=== PATIENT | female | born 1965 | race Caucasian/White ===

== ENCOUNTER 2023-11-03 18:40 | Inpatient (IN) | payer OTHER, SELFPAY ==
[2023-11-03 14:24] VITALS: BP 178/100
--- NOTE | 2023-11-03 14:41 | ED.GENMED ---
History of Present Illness
<Erica Carrasco PA-C - Last Filed: 11/03/23 18:54>
General
Chief Complaint: Abdominal Symptoms
Source: patient
Exam Limitations: none
Time Seen by Provider: 11/03/23 14:29
Nursing documentation reviewed up to this point in time: agreed with
History of Present Illness
History of Present Illness:
Patient is a 58-year-old female presenting to the emergency department for evaluation of upper abdominal pain associated with nausea, vomiting, diarrhea. Patient states pain initially started on after eating dinner at a restaurant. She
describes a severe pain in her epigastric region that has been relatively constant since night, although worse with movement. Patient denies any radiation of pain around to the back. Patient reports nausea, vomiting, and diarrhea over the
past 2 days. No known fevers or chills. No urinary symptoms. No chest pain or shortness of breath. She has been taking Maalox without much improvement.
Of note�patient does report frequent belching over the past few weeks and heartburn which is not typical for patient.
Patient has no history of abdominal surgeries.
Past History
<Erica Carrasco PA-C - Last Filed: 11/03/23 18:54>
Past History
ED Past Medical History: Other (Iron deficiency anemia)
ED Past Surgical History: Gynecological
Social History
Tobacco: Non-smoker
Alcohol: Occasional
Living: with family
Employment: Employed
Family History
Family History: Negative Diabetes, Hypertension, Early CAD, Asthma or Cancer
Review of Systems
<Erica Carrasco PA-C - Last Filed: 11/03/23 18:54>
Review of Systems
Allergies reviewed?: Yes
All Other Systems: ROS reviewed and negative except as documented in HPI and ROS
Phy Exam
<Erica Carrasco PA-C - Last Filed: 11/03/23 18:54>
Physical Exam
Physical Exam:
Vitals: Hypertensive, otherwise vital signs stable. Afebrile
General: Patient is well appearing, no acute distress. Nontoxic appearing
Skin: Warm and dry, no rashes or lesions
Head: Normocephalic, atraumatic
Eyes: Sclera nonicteric. EOMs intact. No nystagmus.
Throat: Protecting airway
Neck: Normal ROM, no cervical spine tenderness, no meningismus
Cardiac: Regular rate and rhythm, no murmurs.
Pulm: Normal respiratory effort, no wheezes, rales, rhonchi heard on exam.
Abdomen: Abdomen soft. Moderate tenderness in epigastric region with voluntary guarding. No rebound tenderness. No CVA tender
Extremities: No evidence of cyanosis or edema. Great distal pulses
Neuro: Grossly intact
Psychiatric: Normal affect.
Course
<Erica Carrasco PA-C - Last Filed: 11/03/23 18:54>
Orders/Labs/Results
Orders:
Orders
11/03/23 14:55
Basic Metabolic Panel Urgent
Complete Blood Count/With Diff Urgent
Lipase Urgent
11/03/23 15:17
0.9% Sodium Chloride 1000 ml [Nss] 1,000 ml IV BOLUS
11/03/23 15:18
Electrocardiogram (*1) Urgent
Reason for Study: Abdominal Pain
EKG- Treatment ONCE
11/03/23 15:22
US Abdomen Complete/Upper Urgent
Comment:
Reason For Exam: epigastric abdominal pain +N +V
11/03/23 15:23
Afobh-Oybi-Hbewfdi Urgent
Potassium Urgent
11/03/23 15:30
Urinalysis Reflex To Culture Urgent
Date Specimen was Collected: 11/03/23
Time Specimen was Collected: 15:27
Urine Microscopic Reflex Cult Urgent
11/03/23 16:42
CefTRIAXone [Rocephin] 1,000 mg IV NOW STA
11/03/23 16:43
Sterile Water [Sterile Water For Injection] 10 ml .ROUTE .STK-MED ONE
11/03/23 16:49
Ketorolac [Toradol] 15 mg IV NOW STA
11/03/23 17:18
Admit/Transfer Patient As Directed
Co-Sign Provider:
Level of Care: Inpatient admission
Assign to:: Medical/Surgical
Physician / Group: herrera
Diagnosis: choledocholelithiasis
Reason for Hospitalization: choledocholelithasis
Expected length of stay greater than two midnights?: Yes
ELOS- Estimated Length of Stay in days: 3
I certify the patient meets the requirements for IP care: Yes
11/03/23 17:19
PRN Pain Medication Management As Directed
May give lesser potent ordered pain med per pt: Yes
preference::
Protocol:: Medication orders for pain may be administered in a
manner that supports deferring to patient preference
when the pt is:
- Requesting an ordered lesser potent pain medication.
Least to most potent pain medications are defined
as: acetaminophen < NSAID < tramadol < opioids
(morphine, oxycodone, hydromorphone).
- Requesting a lesser dose of the same medication IF
ORDERED.
- Requesting a less intrusive route of administration
if both routes are prescribed by the provider (PO <
IV).
11/03/23 17:20
Code Status As Directed
Resuscitation Status: Full Code
Abnormal Lab Results
11/03/23 11/03/23 11/03/23
14:55 15:23 15:30
RBC 3.90 L 10^6/uL
(4.20-5.40)
Hct 36.8 L %
(37.0-47.0)
MCH 33.8 H pg
(27.0-31.0)
MPV 10.8 H fL
(7.4-10.4)
Monocytes % 10.0 H %
(1.7-9.3)
Glucose 115 H mg/dl
(70-99)
Total Bilirubin 1.7 H mg/dl
(0.2-1.3)
Direct Bilirubin 1.0 H mg/dl
(0.0-0.4)
AST 400 H U/L
(14-36)
ALT 787 H* U/L
(0-35)
Alkaline Phosphatase 167 H U/L
(38-126)
Urine Ketones Trace A
(Negative)
Urine Bilirubin 1+ A
(Negative)
Urine Urobilinogen 2+ A
(Neg - 1+)
Leukocyte Esterase Rfl Trace A
(Negative)
Urine Bacteria (Reflex) Few A
(Negative)
11/03/23 14:55
11/03/23 15:42
Vital Signs
Initial and Last Documented VS:
Initial Vital Signs
Temp Pulse Resp BP Pulse Ox
98.7 F 85 16 178/100 98
11/03/23 14:24 11/03/23 14:24 11/03/23 14:24 11/03/23 14:24 11/03/23 14:24
Last Documented Vital Signs
Temp Pulse Resp BP Pulse Ox
98.7 F 85 16 178/100 98
11/03/23 14:24 11/03/23 14:24 11/03/23 14:24 11/03/23 14:24 11/03/23 14:24
<Valencia Goldsmith, DO - Last Filed: 11/03/23 16:53>
Orders/Labs/Results
Orders:
Orders
11/03/23 14:55
Basic Metabolic Panel Urgent
Complete Blood Count/With Diff Urgent
Lipase Urgent
11/03/23 15:17
0.9% Sodium Chloride 1000 ml [Nss] 1,000 ml IV BOLUS
11/03/23 15:18
Electrocardiogram (*1) Urgent
Reason for Study: Abdominal Pain
EKG- Treatment ONCE
11/03/23 15:22
US Abdomen Complete/Upper Urgent
Comment:
Reason For Exam: epigastric abdominal pain +N +V
11/03/23 15:23
Yvhhj-Otuf-Heffqrq Urgent
Potassium Urgent
11/03/23 15:30
Urinalysis Reflex To Culture Urgent
Date Specimen was Collected: 11/03/23
Time Specimen was Collected: 15:27
Urine Microscopic Reflex Cult Urgent
11/03/23 16:42
CefTRIAXone [Rocephin] 1,000 mg IV NOW STA
11/03/23 16:43
Sterile Water [Sterile Water For Injection] 10 ml .ROUTE .STK-MED ONE
11/03/23 16:49
Ketorolac [Toradol] 15 mg IV NOW STA
11/03/23 17:18
Admit/Transfer Patient As Directed
Co-Sign Provider:
Level of Care: Inpatient admission
Assign to:: Medical/Surgical
Physician / Group: herrera
Diagnosis: choledocholelithiasis
Reason for Hospitalization: choledocholelithasis
Expected length of stay greater than two midnights?: Yes
ELOS- Estimated Length of Stay in days: 3
I certify the patient meets the requirements for IP care: Yes
11/03/23 17:19
PRN Pain Medication Management As Directed
May give lesser potent ordered pain med per pt: Yes
preference::
Protocol:: Medication orders for pain may be administered in a
manner that supports deferring to patient preference
when the pt is:
- Requesting an ordered lesser potent pain medication.
Least to most potent pain medications are defined
as: acetaminophen < NSAID < tramadol < opioids
(morphine, oxycodone, hydromorphone).
- Requesting a lesser dose of the same medication IF
ORDERED.
- Requesting a less intrusive route of administration
if both routes are prescribed by the provider (PO <
IV).
11/03/23 17:20
Code Status As Directed
Resuscitation Status: Full Code
Abnormal Lab Results
11/03/23 11/03/23 11/03/23
14:55 15:23 15:30
RBC 3.90 L 10^6/uL
(4.20-5.40)
Hct 36.8 L %
(37.0-47.0)
MCH 33.8 H pg
(27.0-31.0)
MPV 10.8 H fL
(7.4-10.4)
Monocytes % 10.0 H %
(1.7-9.3)
Glucose 115 H mg/dl
(70-99)
Total Bilirubin 1.7 H mg/dl
(0.2-1.3)
Direct Bilirubin 1.0 H mg/dl
(0.0-0.4)
AST 400 H U/L
(14-36)
ALT 787 H* U/L
(0-35)
Alkaline Phosphatase 167 H U/L
(38-126)
Urine Ketones Trace A
(Negative)
Urine Bilirubin 1+ A
(Negative)
Urine Urobilinogen 2+ A
(Neg - 1+)
Leukocyte Esterase Rfl Trace A
(Negative)
Urine Bacteria (Reflex) Few A
(Negative)
11/03/23 14:55
11/03/23 15:42
Vital Signs
Initial and Last Documented VS:
Initial Vital Signs
Temp Pulse Resp BP Pulse Ox
98.7 F 85 16 178/100 98
11/03/23 14:24 11/03/23 14:24 11/03/23 14:24 11/03/23 14:24 11/03/23 14:24
Last Documented Vital Signs
Temp Pulse Resp BP Pulse Ox
98.7 F 85 16 178/100 98
11/03/23 14:24 11/03/23 14:24 11/03/23 14:24 11/03/23 14:24 11/03/23 14:24
<Erica Carrasco PA-C - Last Filed: 11/03/23 18:54>
MDM/Problems Addressed
Differential Diagnosis Includes:
Not limited to: Biliary colic, cholecystitis, choledocholithiasis, cholangitis, pancreatitis, gastritis, ulcer
MDM/Problems Addressed:
58-year-old female presenting with upper abdominal pain associated with nausea, vomiting, diarrhea for the past 4 days. No fever or chills. Patient without any hematemesis, hematochezia/melena. No urinary symptoms. Patient initially
hypertensive, otherwise vital signs stable. She is afebrile. Physical exam as above. Patient is nontoxic-appearing, although mildly uncomfortable due to pain. Abdomen is soft with moderate tenderness in right upper quadrant/epigastric region
with voluntary guarding. No rebound tenderness. No tenderness at McBurney's point. Heart regular rate and rhythm. Lungs clear bilaterally. Patient is perfusing well. Given patient's history and location of pain on exam�will check basic labs,
lipase, abdominal ultrasound. Will check EKG. will give IV fluids. Patient declines any analgesia at this time. Will closely monitor and reassess
Chronic conditions affecting care:
N/A
Acute Exacerbation and/or Progression of Chronic Illness:
N/A
<Erica Carrasco PA-C - Last Filed: 11/03/23 18:54>
*Radiology
Radiology exam reviewed: preliminary read by ED provider and radiology read reviewed
*Pulse Oximetry
Patient hypoxic: no
*EKG
Interpreted by ED Provider?: Yes
EKG Intrepretation Date: 11/03/23
Interpretation: normal
Comparison EKG: no changes
Heart Rate: 75
Rate: normal
Rhythm: sinus
[place]: normal axis
Interval: normal interval
QRS Pattern: normal QRS
Ischemia: no ischemia
*Billboard Erector Interpretation
Rate: Billboard Erector- N/A
*Critical Care Note
Total Time (30-74mins, 75-104mins- exclusive of procedures): Not Applicable
<Erica Carrasco PA-C - Last Filed: 11/03/23 18:54>
Update Note
Update Note:
Update: Labs reviewed. CBC without any clinically significant abnormalities. No leukocytosis. CMP shows significant transaminitis with elevation of total bilirubin. Lipase is normal. Abdominal ultrasound shows evidence of choledocholithiasis
with a dilation of this CBD to 4.7 mm any 3 mm stone visualized in the distal common bile duct. Likely etiology of patient's pain. No evidence of accompanying acute cholecystitis. Will give dose of Rocephin and Toradol for pain. Discussed with GI
who will plan for ERCP tomorrow. Patient admitted and accepted to hospitalist service, n.p.o. at midnight�plan for ERCP with GI tomorrow. Patient hemodynamically stable and admitted in stable condition. Patient seen with attending physician.
ED Attending Note
<Erica Carrasco PA-C - Last Filed: 11/03/23 18:54>
-
Portions of this chart may have been created with voice recognition software.� Occasional wrong word or��sound alike� substitutions may have occurred due to the inherent limitations of voice recognition software.
<Valencia Goldsmith DO - Last Filed: 11/03/23 16:53>
ED Attending Note
Patient seen and examined by attending physician: Yes
I performed the substantive portion of visit, reviewed & personally made and approve the management plan that is documented in note by myself or SAMARIA.: Yes
I performed a history and physical exam of patient and discussed management with resident, I reviewed resident's note and agree with documented findings and plan of care.: Yes
ED Attending Note:
58-year-old female without significant past medical history presenting with upper abdominal pain with nausea and vomiting, onset 4 days ago. Pain has been persistent. Denies any surgical history in the past. Denies any fever. Vital signs
significant for hypertension, however patient uncomfortable on arrival.
On exam, focal tenderness to the right upper quadrant with rebound, no guarding. Patient had laboratory analysis and right upper quadrant ultrasound performed prior to my evaluation. Workup is concerning for transaminitis and elevated T. bili,
with ultrasound showing choledocholithiasis, suspected etiology of patient's symptoms, consistent with her symptoms. Patient is otherwise hemodynamically stable. Will start antibiotics with plan for admission with GI consultation and likely ERCP.
Patient agreeable to this plan.
Discharge Plan
Departure
Patient Disposition: Admit
Date of Disposition: 11/03/23
Time of Disposition: 16:52
Presentation/result/management discussed w/ accepting MD/DO: Hospitalist
Condition: Good
Covid-19: Not Applicable
Discharge Problem:
Choledocholithiasis
Interventions
Interventions:
*Risk Screen - Suicide Last Done: 11/03/23 14:44
*General Assessment Last Done: 11/03/23 14:44
*Neglect/Abuse Screening Last Done: 11/03/23 14:44
CJ-Agedab-Hyupsjgljn Assessment Last Done: 11/03/23 14:44
[2023-11-03 14:44] VITALS: BMI 20.3
[2023-11-03 15:03] LABS: % Basophils 0.8 % (0-2); % Eosinophils 1.9 % (0-6); % Immature Granulocytes 0.2 % (0-0.5); % Lymphocytes 30.6 % (20.5-51.1); % Neutrophils 56.5 % (42.2-75.2); Absolute Eosinophils 0.1 10^3/uL (0-0.7); Absolute Lymphocytes 1.6 10^3/uL (1.2-3.4); Absolute Monocytes 0.5 10^3/uL (0.1-0.6); Hematocrit 36.8 % (37.0-47.0); Hemoglobin 13.2 g/dL (12.0-16.0); Mean Corp Hgb Conc. 35.9 g/dL (33.0-37.0); Mean Corpuscular Hgb 33.8 pg (27.0-31.0); Mean Corpuscular Volume 94.4 fL (81.0-99.0); Mean Platelet Volume 10.8 fL (7.4-10.4); Nucleated Red Blood Cells % 0 %; Platelet Count 173 10^3/uL (130-400); Red Cell Dist. Width 11.7 % (11.5-14.5); White Blood Cell Count 5.3 10^3/uL (4.8-10.8)
[2023-11-03 15:19] LABS: Blood Urea Nitrogen 11 mg/dl (7-17); Calcium 9.2 mg/dl (8.4-10.2); Carbon Dioxide 24 mmol/L (22-30); Chloride 106 mmol/L (98-107); Estimated Creatinine Clearance 85 ml/min; Glucose 115 mg/dl (70-99); Lipase 84 U/L (23-300); Sodium 141 mmol/L (135-145); eGFR > 60.00
[2023-11-03] MEDS: NSS 1000 IV ×2 (15:27→20:15)
[2023-11-03 15:42] LABS: Urine Albumin Negative (Neg - Trace); Urine Bilirubin 1+ (Negative); Urine Character Clear (Clear); Urine Color Amber; Urine Glucose Negative (Negative); Urine Ketone Trace (Negative); Urine Leukocyte Trace (Negative); Urine Nitrite Negative (Negative); Urine Occult Blood Negative (Negative); Urine Specific Gravity 1.025 (<1.030); Urine Urobilinogen 2+ (Neg - 1+)
[2023-11-03 15:55] LABS: AST (SGOT) 400 U/L (14-36); Albumin 4.2 g/dl (3.5-5.0); Alkaline Phosphatase 167 U/L (38-126); Potassium 3.9 mmol/L (3.5-5.1); Total Bilirubin 1.7 mg/dl (0.2-1.3); Total Protein 6.5 g/dl (6.3-8.2)
[2023-11-03 16:10] LABS: ALT (SGPT) 787 U/L (0-35)
[2023-11-03] MEDS: ROCEPHIN 1000 MG IV (16:44)
[2023-11-03] MEDS: TORADOL 15 MG IV (16:56)
--- NOTE | 2023-11-03 17:00 | HPS.HSE ---
Family Physician
-
Family Physician: Santos Hathaway
Chief Complaint
-
epigastric pain associated with n/v/d
History of Present Illness
58-year-old female with PMH for GERD presented to us with epigastric pain associate with nausea vomiting diarrhea since night. Patient stated no more vomiting since Friday night . She is only eating crackers, GGT and toasted bread . She
has intermittent nonbloody watery diarrhea . Patient took antacid and Pepcid with no relief in her symptoms . Today her epigastric pain got worse which prompted her to come to the ER . Patient denied any fever, chills, runny nose, congestion,
cough .patient denied any headache, dizziness, syncopal episode .patient denied dysuria, hematuria.
CT with choledocholithiasis. received ceftriaxone in ER. admitting for further management.
Medical History
Past Medical History
Past Medical History: Reports Other
Additional Past Medical History:
GERD
Past Surgical History: Reports None
Social History
Tobacco: Non-smoker
Alcohol: Occasional
Drug: None
Family History
Family History: Not pertinent
Allergies / Home Medications
Allergies reflects when Allergies were last updated in [facility].
Home Medications with original date entered in [facility]
Allergy/Medication List:
Allergies
Allergy/AdvReac Type Severity Reaction Status Date / Time
codeine [Codeine] AdvReac nausea and Verified 11/03/23 14:25
vomiting
oxycodone [Oxycodone] AdvReac nausea and Verified 11/03/23 14:25
vomiting
Home Medications
cholecalciferol (vitamin D3) 50 mcg (2,000 unit) tablet (Vitamin D3) 50 mcg PO HS 11/03/23
estradiol-norethindrone acet 1 mg-0.5 mg tablet 1 tab PO HS 11/03/23
omeprazole magnesium 20 mg tablet,delayed release (Prilosec OTC) 20 mg PO DAILYPRN PRN stomach issues 11/03/23
therapeutic multivitamin 1 tab PO HS 11/03/23
Review of Systems
-
Constitutional: Reports No Symptoms
EENT: Reports No Symptoms
Respiratory: Reports No Symptoms
Cardiac: Reports No Symptoms
Abdomen/GI: Reports Abdominal Pain, Nausea, Vomiting and Diarrhea
: Reports No Symptoms
Musculoskeletal: Reports No Symptoms
Skin: Reports No Symptoms
Neurological: Reports No Symptoms
Endocrine: Reports No Symptoms
Hematologic/Lymphatic: Reports No Symptoms
Psych: Reports No Symptoms
Physical Exam
Vital Signs
Vital Signs
Temp Pulse Resp BP Pulse Ox
98.7 F 85 16 178/100 98
11/03/23 14:24 11/03/23 14:24 11/03/23 14:24 11/03/23 14:24 11/03/23 14:24
Physical Exam
General: Well Developed, Well Nourished and No Apparent Distress
HEENT: NormoCephalic, Moist mucous membranes and Atraumatic
Respiratory: Clear
Cardiac: S1/S2 and Regular Rhythm; No Murmur or Rub
GI: Soft, Non Tender, Non Distended and Normal Bowel Sounds; No Organomegaly
Rectal: Deferred by Provider
Musculoskeletal: No Clubbing, No Cyanosis and No Edema
Skin: No Rash
Neuro: AO x 3 and Nonfocal/grossly intact
Psych: Calm
Laboratory Results
-
11/03/23 14:55
11/03/23 15:42
Laboratory Results
Total Bilirubin Cancelled 11/03/23 15:42
AST Cancelled 11/03/23 15:42
ALT Cancelled 11/03/23 15:42
Alkaline Phosphatase Cancelled 11/03/23 15:42
Lipase 84 U/L (23-300) 11/03/23 14:55
Data Reviewed
-
CT Scan: Report Reviewed by me
Lab Data: Labs Reviewed by me
Impression/Plan
-
#epigastric pain associated with N/V/D likely from Choledocholithiasis
-total bili 1.7, direct bili 1.0,AST 400,ALT 787, ALK phos 167
-abdomen US with choledocholithiasis with a 3 mm calculus in the distal common bile duct.There is, however, no associated biliary dilatation and there is no thickening of the gallbladder wall or pericholecystic edema.
-keep patient NPO
-fluids continued for hydration
-initiated on Zosyn
-possible ERCP tomorrow
-GI following
#DVT prophylaxis
-scd
#CODE status
-full code
[2023-11-03 17:10] VITALS: BP 145/82
[2023-11-03 17:14] LABS: Urine Squamous Cell 26-30 /LPF (Few)
[2023-11-03 17:15] LABS: Urine Bacteria Few (Negative); Urine Red Blood Cell 0-2 /HPF (0-2)
--- NOTE | 2023-11-03 18:23 | W.PN.UPDATE ---
Addendum entered and electronically signed by Mabel Saravia MD 11/03/23 18:32:
PRN hydralazine for Hypertensive urgency secondary to pain.
Original Note:
Update Note
Progress Note Update
This is an addendum to the H&P written by Yamileth Nye on 11/03/2023. Patient seen and examined independently with WOUND CARE SPECIALIST.
58-year-old female history of GERD, here for epigastric pain and transaminitis secondary to choledocholithiasis. Abdominal ultrasound shows choledocholithiasis with 3 mm calculus in the distal common bile duct. IV fluids, Zosyn, n.p.o. for ERCP
tomorrow by GI.
[2023-11-03 19:25] VITALS: BP 148/85; BMI 21.1
[2023-11-03] MEDS: ZOSYN 50 IV (20:15)
[2023-11-03] MEDS: ZOFRAN 4 MG IV (20:30)
--- NOTE | 2023-11-03 20:30 | PTCARENOTE ---
58-year-old female with PMH for GERD presented to us with epigastric pain associate with nausea vomiting diarrhea since night. Patient stated no more vomiting since Friday night. Pain got worse admitted for ERCP tomorrow. [place]rived [place] [address] at 19:40 with adult daughter and a friend. Pt AOx3. bed in a low position. call light in reach.
[2023-11-03] MEDS: DILAUDID 1 MG IV (20:32)
[2023-11-03 22:48] VITALS: BP 146/87
[2023-11-03] MEDS: COMPAZINE 5 MG IV (23:12)
[2023-11-04] VITALS (12 sets, daily range): BP systolic 104–169; BP diastolic 57–93
[2023-11-04] MEDS: ZOSYN 50 IV (01:19)
[2023-11-04 07:33] LABS: Hematocrit 35.9 % (37.0-47.0); Hemoglobin 12.5 g/dL (12.0-16.0); Mean Corp Hgb Conc. 34.8 g/dL (33.0-37.0); Mean Corpuscular Hgb 33.2 pg (27.0-31.0); Mean Corpuscular Volume 95.2 fL (81.0-99.0); Mean Platelet Volume 11.3 fL (7.4-10.4); Platelet Count 156 10^3/uL (130-400); Red Blood Cell Count 3.77 10^6/uL (4.20-5.40); Red Cell Dist. Width 11.7 % (11.5-14.5); White Blood Cell Count 4.5 10^3/uL (4.8-10.8)
[2023-11-04] MEDS: NSS (PRESERVATIVE FREE) 10 ML IV (07:52)
[2023-11-04] MEDS: PROTONIX IV 40 MG IV (07:52)
[2023-11-04 07:56] LABS: ALT (SGPT) 579 U/L (0-35); AST (SGOT) 186 U/L (14-36); Albumin 3.6 g/dl (3.5-5.0); Alkaline Phosphatase 151 U/L (38-126); Blood Urea Nitrogen 8 mg/dl (7-17); Calcium 8.9 mg/dl (8.4-10.2); Carbon Dioxide 24 mmol/L (22-30); Chloride 109 mmol/L (98-107); Estimated Creatinine Clearance 87 ml/min; Glucose 84 mg/dl (70-99); Sodium 142 mmol/L (135-145); Total Bilirubin 1.3 mg/dl (0.2-1.3); Total Protein 5.8 g/dl (6.3-8.2); eGFR > 60.00
--- NOTE | 2023-11-04 08:18 | CON.GI ---
Consultation
-
Date/Time Consultation Requested: 11/03/23 17:20
Date/Time Consultation Performed: 11/04/23 8:15
Requesting Provider: Dr. Mabel Saravia
Performing Provider: Dr. Raffy Skinner
Reason for Consultation: Choledocholithiasis
Medical History
Chief Complaint / HPI
Chief Complaint: Epigastric abdominal pain
History of Present Illness:
Ms Wong is a 58 year old female with past medical history of GERD who presented to the ED with epigastric pain along with nausea/vomiting. Found to have elevated LFTs and US revealing choledocholithiasis. Gastroenterology has been consulted for
further evaluation and management.
Patient states she was in her USOH until evening when she developed sharp, upper epigastric abdominal pain along with nausea and NBNB emesis that occurred after dinner. Denies any sick contacts or spoiled food ingestion. Denies any prior
similar symptoms in the past. The pain continued to wax and wane and then improved on Friday and initially over the weekend. She initially attributed her symptoms to her reflux and tried taking an antacid and pepcid without any relief. Otherwise, no
fevers, chills, night sweats or other constitutional symptoms. However, yesterday she developed acute worsening epigastric pain prompting her come to the ED for further evaluation. Otherwise, she is not on any antiplatelets or anticoagulants. No
NSAIDs. She denies ever having a prior EGD. Last colonoscopy was about 2-3 years ago and reportedly normal.
In the ED, patient was afebrile and HD-stable with HR 70-90s. Labs notable for BUN 11 and [employer] 0.6. LFTs with AST 400, ALT 787, ALP 167, and T Bili 1.7. Lipase 84. CBC without leukocytosis with WBC 5.3, Hgb 13.2, and plts 173. Abd US 11/03/23 revealed
choledocholithiasis with a 3 mm calculus within the distal CBD without associated biliary ductal dilatation or other evidence of cholecystitis. She was given IVF and started on IV Zosyn and admitted to medicine for further management.
Past Medical History
Past Medical History: GERD
Social History
Tobacco: Non-Smoker
Alcohol: Occasional
Drug: None
Allergies / Home Medications
Allergy/AdvReac Type Severity Reaction Status Date / Time
codeine [Codeine] AdvReac nausea and Verified 11/03/23 14:25
vomiting
oxycodone [Oxycodone] AdvReac nausea and Verified 11/03/23 14:25
vomiting
�Medication �Instructions �Recorded
cholecalciferol (vitamin D3) 50 50 mcg PO HS Supplement 11/03/23
mcg (2,000 unit) tablet (Vitamin
D3)
estradiol-norethindrone acet 1 1 tab PO HS Hormonal Agent 11/03/23
mg-0.5 mg tablet
omeprazole magnesium 20 mg 20 mg PO DAILYPRN PRN stomach 11/03/23
tablet,delayed release (Prilosec issues
OTC)
therapeutic multivitamin 1 tab PO HS Supplement 11/03/23
Review of Systems
-
All other systems: A 12 pt ROS was Negative except as stated above in HPI
Vital Signs
Temp Pulse Resp BP Pulse Ox
97.8 F 66 18 104/57 99
11/04/23 07:51 11/04/23 07:51 11/04/23 07:51 11/04/23 07:51 11/04/23 07:51
Physical Exam
Exam
General: Well Developed, Well Nourished, No Apparent Distress and Comfortable
HEENT: Normocephalic, Anicteric and Moist Mucous Membranes
Respiratory: Clear and Non Labored Respirations
Cardiac: S1/S2 and Regular Rhythm
GI: Soft, Tender (Mild epigastric tenderness) and Other (No rebound or involuntary gaurding)
Skin: Warm
Neuro: AO x 3 and Nonfocal/Grossly Intact
Psych: Calm
Results
WBC 4.5 10^3/uL (4.8-10.8) L 11/04/23 06:54
Hgb 12.5 g/dL (12.0-16.0) 11/04/23 06:54
Hct 35.9 % (37.0-47.0) L 11/04/23 06:54
MCV 95.2 fL (81.0-99.0) 11/04/23 06:54
Plt Count 156 10^3/uL (130-400) 11/04/23 06:54
Absolute Neuts (auto) 3.0 10^3/uL (1.4-6.5) 11/03/23 14:55
Sodium 142 mmol/L (135-145) 11/04/23 06:54
Potassium 4.0 mmol/L (3.5-5.1) 11/04/23 06:54
Chloride 109 mmol/L (98-107) H 11/04/23 06:54
Carbon Dioxide 24 mmol/L (22-30) 11/04/23 06:54
BUN 8 mg/dl (7-17) 11/04/23 06:54
Creatinine 0.6 mg/dL (0.6-1.0) 11/04/23 06:54
Calcium 8.9 mg/dl (8.4-10.2) 11/04/23 06:54
Total Bilirubin 1.3 mg/dl (0.2-1.3) 11/04/23 06:54
AST 186 U/L (14-36) H 11/04/23 06:54
ALT 579 U/L (0-35) H* 11/04/23 06:54
Alkaline Phosphatase 151 U/L (38-126) H 11/04/23 06:54
Lipase 84 U/L (23-300) 11/03/23 14:55
Diagnostic Image Results:
Abd US 11/03/23 revealed choledocholithiasis with a 3 mm calculus within the distal CBD without associated biliary ductal dilatation or other evidence of cholecystitis.
Prior GI Procedures:
EGD: No prior EGD
Colonoscopy: Last colonoscopy 2-3 years ago normal (reported by patient)
Assessment / Plan
-
Ms Wong is a 58 year old female with past medical history of GERD who presented to the ED with epigastric pain along with nausea/vomiting. Found to have elevated LFTs and US revealing choledocholithiasis. Gastroenterology has been consulted for
further evaluation and management.
#Biliary Colic #Choledocholithiasis
#Acute Hepatocellular Predominant Liver Injury
#Nausea/Vomiting
#Hx of GERD
Impression: Patient presenting with biliary colic along with nausea/vomiting found to have elevated LFTs with AST 400, ALT 787, ALP 167, and T Bili 1.7 along with lipase 84. Abd US 10/28 revealing small 3 mm calculus within distal CBD without biliary
ductal dilatation consistent with choledocholithiasis. Otherwise, no fevers, chills, leukocytosis or other signs of SIRS. Thus, no concern for biliary sepsis / cholangitis at this time and favor monitoring off IV antibiotics. Would benefit from ERCP
with stone extraction along with eventual cholecystectomy.
Recommendations:
- Keep NPO
- Continue IVF to maintain euvolemia
- Trend serial LFTs q daily while inpatient- improving
- Check acute hepatitis panel and total HBV serologies for completion
- Stop IV Zosyn as without evidence of cholangitis
- Plan for ERCP today, 11/04/2023, for stone extraction
- Would benefit from both pre-procedural rectal Indomethacin along with bryant-procedural IV LR for prevention of PEP
- Discussed risks (including PEP, bleeding, infection, etc) and benefits at length at bedside. Patient wishes to proceed with ERCP
- Recommend surgical consult after ERCP for eventual cholecystectomy, defer timing to general surgery
- Rest of care per primary team
Discussed with primary internal medicine team this AM.
Thank you for allowing me to participate in the care of this patient. Please do not hesitate to call for any further questions. Inpatient GI team will continue to follow.
Data Reviewed
-
Radiology: Report Reviewed by me
Ultrasound: Image Personally Visualized and interpreted and Report Reviewed by me
-
-
Thank you for consultation and allowing me to participate in the patient's care. Please call the [facility] GI physician during the after hours with any questions or concerns.
[2023-11-04] MEDS: ZOSYN IV (08:42)
[2023-11-04] MEDS: NSS 1000 IV (09:40)
[2023-11-04] MEDS: TYLENOL 650 MG PO ×2 (09:43→22:06)
--- NOTE | 2023-11-04 10:19 | W.PN.HOSP.TC ---
Today's Communication/Plan
-
IVF
DC abx
ERCP
Assessment / Plan
Assessment / Plan
General: Well Developed, Well Nourished and No Apparent Distress
HEENT: NormoCephalic, Moist mucous membranes and Atraumatic
Respiratory: Clear
Cardiac: S1/S2 and Regular Rhythm; No Murmur or Rub
GI: Soft, TTP epigastric region, Non Distended and Normal Bowel Sounds; No Organomegaly
Rectal: Deferred by Provider
Musculoskeletal: No Clubbing, No Cyanosis and No Edema
Skin: No Rash
Neuro: AO x 3 and Nonfocal/grossly intact
Psych: Calm
#Epigastric pain associated with N/V/D likely from Choledocholithiasis
-Mild improvement in transaminitis.
-abdomen US with choledocholithiasis with a 3 mm calculus in the distal common bile duct.There is, however, no associated biliary dilatation and there is no thickening of the gallbladder wall or pericholecystic edema.
-keep patient NPO
-fluids continued for hydration
-Discussed with GI. DC antibiotics. Not concern for cholangitis
-Plan for ERCP later today
-Serologies pending.
-May require laparoscopic cholecystectomy (Inpatient vs. OP). Consult surgery post ERCP
-GI following
#DVT prophylaxis
-scd
#CODE status
-full code
Discussed with multiple family member at bedside
Anticipated Discharge: > 48 hours
Subjective/Interval History
-
Date of Service: November 04, 2023
remains with abd pain
Objective Data
-
Labs:
Laboratory Results
11/04/23
06:54
WBC 4.5 L
Hgb 12.5
Hct 35.9 L
Plt Count 156
Sodium 142
Potassium 4.0
Chloride 109 H
Carbon Dioxide 24
BUN 8
Creatinine 0.6
Glucose 84
Calcium 8.9
Total Bilirubin 1.3
AST 186 H
ALT 579 H*
Alkaline Phosphatase 151 H
Vital Signs:
Vital Signs
Temp Pulse Resp BP Pulse Ox
97.8 F 66 18 104/57 99
11/04/23 07:51 11/04/23 07:51 11/04/23 07:51 11/04/23 07:51 11/04/23 07:51
I&O
11/03/23 11/04/23 11/05/23
06:59 06:59 06:59
Intake Total 1060 / 1060
Balance 1060 / 1060
Data Reviewed
-
Total Time Spent with Patient (in minutes): 56
[2023-11-04 11:09] LABS: Hepatitis B Surface Antigen Negative (Negative)
[2023-11-04 11:12] LABS: Hepatitis A IgM Antibody Negative (Negative); Hepatitis B Core Ab, IgM Negative (Negative)
[2023-11-04 11:27] LABS: Hepatitis B Core Ab, Total Negative (Negative); Hepatitis C Antibody Negative (Negative)
[2023-11-04 11:28] LABS: Hepatitis A Antibody, Total Negative (Negative)
--- NOTE | 2023-11-04 11:37 | CM ---
Reviewed the chart notes and spoke with the patient and family at the bedside. Patient anticipates having an ERCP today. The patient resides with her spouse, daughter, and son in a two story home with one step to enter. The patient reports no
DME/VN/SNF. The patient confirmed her pharmacy of choice is the [facility]. CM continues to be available to patient/family and is monitoring medical plan for needs at discharge.
Plan: Discharge to home when medically stable. No needs anticipated.
[2023-11-04 13:02] LABS: Hepatitis B Surface Antibody Indeterminate
[2023-11-04] MEDS: APRESOLINE 10 MG IV (16:48)
--- NOTE | 2023-11-04 18:12 | PTCARENOTE ---
1720: Patient arrived back to 2S post ERCP. Assessment from AM remains unchanged. Patient on RA with SpO2 greater than 92%. IVF running per order. Call pittman within reach and bed in lowest position. at bedside.
[2023-11-05] VITALS (15 sets, daily range): BP systolic 102–156; BP diastolic 58–105
[2023-11-05] MEDS: NSS 1000 IV ×2 (01:38→20:18)
[2023-11-05] MEDS: TYLENOL 650 MG PO (05:47)
[2023-11-05 06:36] LABS: Hematocrit 34.6 % (37.0-47.0); Hemoglobin 12.4 g/dL (12.0-16.0); Mean Corp Hgb Conc. 35.8 g/dL (33.0-37.0); Mean Corpuscular Hgb 34.1 pg (27.0-31.0); Mean Corpuscular Volume 95.1 fL (81.0-99.0); Mean Platelet Volume 11.1 fL (7.4-10.4); Platelet Count 160 10^3/uL (130-400); Red Blood Cell Count 3.64 10^6/uL (4.20-5.40); Red Cell Dist. Width 11.4 % (11.5-14.5); White Blood Cell Count 6.1 10^3/uL (4.8-10.8)
[2023-11-05 07:13] LABS: ALT (SGPT) 412 U/L (0-35); AST (SGOT) 92 U/L (14-36); Albumin 3.5 g/dl (3.5-5.0); Alkaline Phosphatase 138 U/L (38-126); Blood Urea Nitrogen 9 mg/dl (7-17); Calcium 8.8 mg/dl (8.4-10.2); Carbon Dioxide 24 mmol/L (22-30); Chloride 108 mmol/L (98-107); Estimated Creatinine Clearance 87 ml/min; Glucose 96 mg/dl (70-99); Sodium 140 mmol/L (135-145); Total Protein 5.7 g/dl (6.3-8.2); eGFR > 60.00
[2023-11-05] MEDS: NSS (PRESERVATIVE FREE) 10 ML IV (08:17)
[2023-11-05] MEDS: PROTONIX IV 40 MG IV (08:18)
--- NOTE | 2023-11-05 09:09 | W.PN.GI.CBS2 ---
Today's Communication / Plan
-
S/p ERCP with stone removal and placement of PD stent, recommend general surgery consult for lap cathleen (inpatient versus outpatient). Rest of care as outlined below.
Assessment / Plan
-
Ms Wong is a 58 year old female with past medical history of GERD who presented to the ED with epigastric pain along with nausea/vomiting. Found to have elevated LFTs and US revealing choledocholithiasis. Gastroenterology has been consulted for
further evaluation and management.
#Biliary Colic #Choledocholithiasis s/p ERCP with stone extraction
#Acute Hepatocellular Predominant Liver Injury
#Nausea/Vomiting
#Hx of GERD
Impression: Patient presenting with biliary colic along with nausea/vomiting found to have elevated LFTs with AST 400, ALT 787, ALP 167, and T Bili 1.7 along with lipase 84. Abd US 10/28 revealing small 3 mm calculus within distal CBD without biliary
ductal dilatation consistent with choledocholithiasis. Otherwise, no fevers, chills, leukocytosis or other signs of SIRS. Thus, no concern for biliary sepsis / cholangitis at this time and favor monitoring off IV antibiotics. Would benefit from ERCP
with stone extraction along with eventual cholecystectomy.
S/p ERCP 11/03: Choledocholithiasis was found, managed with biliary sphincterotomy and balloon extraction of one stone, s/p pancreatic sphincterotomy with placement of plastic stent in PD
Recommendations:
- Keep NPO pending surgical evaluation
- Trend serial LFTs q daily while inpatient- improving
- Hep serologies (-) for acute viral hepatitis, HBsAb indeterminate and likely needs repeat vaccination as outpatient
- Will arrange KUB as an outpatient in two weeks (provided patient lab slip this AM) to ensure migration of PD stent
- Recommend surgical consult for lap cathleen, defer timing to surgery
- Will arrange close follow-up after discharge in 6-8 weeks with me in the office. Have messaged clinical staff to make appointment
- Rest of care per primary team
Discussed with internal medicine team this AM.
GI team will sign-off. Please do not hesitate to call for any further questions.
Subjective
Subjective
Date of Service: November 05, 2023
- S/p ERCP 11/03: Choledocholithiasis was found, managed with biliary sphincterotomy and balloon extraction of one stone, s/p pancreatic sphincterotomy with placement of plastic stent in PD
- Otherwise, no acute events overnight
Feeling well, resting comfortably in bed. Tolerating CLD without difficulty. No nausea or vomiting or other epigastric pain. No fevers, chills or other constitutional symptoms.
Objective
Data Reviewed
Laboratory Data:
Laboratory Results
11/05/23 05:40
11/05/23 05:40
Laboratory Results
Total Bilirubin 1.0 mg/dl (0.2-1.3) 11/05/23 05:40
AST 92 U/L (14-36) H 11/05/23 05:40
ALT 412 U/L (0-35) H 11/05/23 05:40
Alkaline Phosphatase 138 U/L (38-126) H 11/05/23 05:40
Lipase 84 U/L (23-300) 11/03/23 14:55
Vital Signs and I&O:
Vital Signs
Temp Pulse Resp BP Pulse Ox
98.9 F 80 16 109/68 100
11/05/23 07:20 11/05/23 07:20 11/05/23 07:20 11/05/23 07:20 11/05/23 07:20
I&O
11/04/23 11/05/23 11/06/23
06:59 06:59 06:59
Intake Total 1060 / 1060 3460 / 3460
Balance 1060 / 1060 3460 / 3460
Physical Exam
Physical Exam
HEENT: Anicteric and Moist mucous membranes
Cardiology: Normal Sinus Rhythm
Pulmonary: Clear
GI: Soft, Non Distended and Flat
Extremities: No Edema
Neuro: Non Focal
--- NOTE | 2023-11-05 09:17 | W.PN.GI.CBS2 ---
Addendum entered and electronically signed by Raffy Skinner, DO 11/05/23 09:28:
Error
Addendum entered and electronically signed by Raffy Skinner, DO 11/05/23 09:27:
ADDENDUM: See previous progress note from this AM for complete note (including subjective/objective) as inadvertently signed two notes.
Original Note:
Today's Communication / Plan
-
S/p ERCP with stone removal and placement of PD stent, recommend general surgery consult for lap cathleen (inpatient versus outpatient). Rest of care as outlined below.
Assessment / Plan
-
Ms Wong is a 58 year old female with past medical history of GERD who presented to the ED with epigastric pain along with nausea/vomiting. Found to have elevated LFTs and US revealing choledocholithiasis. Gastroenterology has been consulted for
further evaluation and management.
#Biliary Colic #Choledocholithiasis
#Acute Hepatocellular Predominant Liver Injury
#Nausea/Vomiting
#Hx of GERD
Impression: Patient presenting with biliary colic along with nausea/vomiting found to have elevated LFTs with AST 400, ALT 787, ALP 167, and T Bili 1.7 along with lipase 84. Abd US 10/28 revealing small 3 mm calculus within distal CBD without biliary
ductal dilatation consistent with choledocholithiasis. Otherwise, no fevers, chills, leukocytosis or other signs of SIRS. Thus, no concern for biliary sepsis / cholangitis at this time and favor monitoring off IV antibiotics. Would benefit from ERCP
with stone extraction along with eventual cholecystectomy.
S/p ERCP 11/03: Choledocholithiasis was found, managed with biliary sphincterotomy and balloon extraction of one stone, s/p pancreatic sphincterotomy with placement of plastic stent in PD
Recommendations:
- Keep NPO pending surgical evaluation
- Trend serial LFTs q daily while inpatient- improving
- Hep serologies (-) for acute viral hepatitis, HBsAb indeterminate and likely needs repeat vaccination as outpatient
- Will arrange KUB as an outpatient in two weeks (provided patient lab slip this AM) to ensure migration of PD stent
- Recommend surgical consult for lap cathleen, defer timing to surgery
- Will arrange close follow-up after discharge in 6-8 weeks with me in the office. Have messaged clinical staff to make appointment
- Rest of care per primary team
Discussed with internal medicine team this AM.
GI team will sign-off. Please do not hesitate to call for any further questions.
Subjective
Subjective
Date of Service: November 05, 2023
Objective
Data Reviewed
Laboratory Data:
Laboratory Results
11/05/23 05:40
11/05/23 05:40
Laboratory Results
Total Bilirubin 1.0 mg/dl (0.2-1.3) 11/05/23 05:40
AST 92 U/L (14-36) H 11/05/23 05:40
ALT 412 U/L (0-35) H 11/05/23 05:40
Alkaline Phosphatase 138 U/L (38-126) H 11/05/23 05:40
Lipase 84 U/L (23-300) 11/03/23 14:55
Vital Signs and I&O:
Vital Signs
Temp Pulse Resp BP Pulse Ox
98.9 F 80 16 109/68 100
11/05/23 07:20 11/05/23 07:20 11/05/23 07:20 11/05/23 07:20 11/05/23 07:20
I&O
11/04/23 11/05/23 11/06/23
06:59 06:59 06:59
Intake Total 1060 / 1060 3460 / 3460
Balance 1060 / 1060 3460 / 3460
--- NOTE | 2023-11-05 10:11 | CON.GS ---
Consultation
-
Requesting Provider: Yamileth
Performing Provider: Tatiana
Reason for Consultation: Choledocholithiasis
Medical History
-
Chief Complaint: Abd pain
History of Present Illness:
58F with acute onset epigastric pain a/w n/v/d that began about a week ago. Pain was intially mproved with bowel rest but returned and was more severe promtpting ED visit. US identified choledocholithiasis and she underwent successful ERCP yesterday
with stone extraction. GS was consulted to discuss the role of CCY in this setting.
Past Medical History
Past Medical History: GERD
Past Surgical History: Reviewed & Noncontributory
Social History
Tobacco: Non-Smoker
Alcohol: Occasional
Drug: None
Family History
Family History: Reviewed & Noncontributory
Allergies / Home Medications
Allergy/AdvReac Type Severity Reaction Status Date / Time
codeine [Codeine] AdvReac nausea and Verified 11/03/23 14:25
vomiting
oxycodone [Oxycodone] AdvReac nausea and Verified 11/03/23 14:25
vomiting
�Medication �Instructions �Recorded �Confirmed �Type
cholecalciferol (vitamin D3) 50 50 mcg PO HS Supplement 11/03/23 11/03/23 History
mcg (2,000 unit) tablet (Vitamin
D3)
estradiol-norethindrone acet 1 1 tab PO HS Hormonal Agent 11/03/23 11/03/23 History
mg-0.5 mg tablet
omeprazole magnesium 20 mg 20 mg PO DAILYPRN PRN stomach 11/03/23 11/03/23 History
tablet,delayed release (Prilosec issues
OTC)
therapeutic multivitamin 1 tab PO HS Supplement 11/03/23 11/03/23 History
Review of Systems
-
A 10 point review of systems was completed, and was negative except as per HPI.
Physical Exam
Vital Signs
Temp Pulse Resp BP Pulse Ox
98.9 F 80 16 109/68 100
11/05/23 07:20 11/05/23 07:20 11/05/23 07:20 11/05/23 07:20 11/05/23 07:20
11/04/23 11/05/23 11/06/23
06:59 06:59 06:59
Actual Weight 55.61 kg
Body Mass Index (BMI) 21.1
Lab Results
11/05/23 05:40
11/05/23 05:40
WBC 6.1 10^3/uL (4.8-10.8) 11/05/23 05:40
Hgb 12.4 g/dL (12.0-16.0) 11/05/23 05:40
Hct 34.6 % (37.0-47.0) L 11/05/23 05:40
Plt Count 160 10^3/uL (130-400) 11/05/23 05:40
Abs Immat Gran (auto) 0.0 10^3/uL (0-0.05) 11/03/23 14:55
Neutrophils % 56.5 % (42.2-75.2) 11/03/23 14:55
Physical Exam
General: Well Developed, Well Nourished and No Apparent Distress
HEENT: Normocephalic and Anicteric
GI: Soft, Non Tender and Non Distended
Skin: Warm and Dry
Neuro: AO x 3
Psych: Calm
Data Reviewed
-
Ultrasound: Image Personally Visualized and interpreted, Report Reviewed by me, Discussed with Patient and Discussed with Family
Labs: Labs Reviewed by me
Assessment / Plan
-
58F with choledocholithiasis PPD1 s/p ERCP
Doing well. We discussed the rationale for CCY in this setting, to prevent future episodes. She would like to proceed with surgery this admit.
Risks, benefits, complications and alternatives were discussed in detail including pain, bleeding, retained stone, injury to intra-abdominal structures including but not limited to bile ducts, bowel, stomach, conversion to open procedure, need for
further procedure, infection, and the pt verbalized understanding and agreed to proceed.
OCTOR for CCY
--- NOTE | 2023-11-05 10:31 | CM ---
Reviewed the chart notes. Per notes, con connolly during this stay. CM continues to be available to patient/family and is monitoring medical plan for needs at discharge.
Plan: Discharge to home when medically stable.
--- NOTE | 2023-11-05 11:37 | W.PN.HOSP.TC ---
Today's Communication/Plan
-
Continue with IV fluids
OR later today
Assessment / Plan
Assessment / Plan
General: Well Developed, Well Nourished and No Apparent Distress
HEENT: NormoCephalic, Moist mucous membranes and Atraumatic
Respiratory: Clear
Cardiac: S1/S2 and Regular Rhythm; No Murmur or Rub
GI: Soft, Non Distended and Normal Bowel Sounds; No Organomegaly
Rectal: Deferred by Provider
Musculoskeletal: No Clubbing, No Cyanosis and No Edema
Skin: No Rash
Neuro: AO x 3 and Nonfocal/grossly intact
Psych: Calm
#Epigastric pain associated with N/V/D likely from Choledocholithiasis
-Mild improvement in transaminitis.
-abdomen US with choledocholithiasis with a 3 mm calculus in the distal common bile duct.There is, however, no associated biliary dilatation and there is no thickening of the gallbladder wall or pericholecystic edema.
-keep patient NPO
-fluids continued for hydration
-Discussed with GI. DC antibiotics. Not concern for cholangitis
-s/p ERCP biliary sphincterotomy and balloon extraction status post pancreatic stent durotomy with placement of plastic stent.
-Serologies pending.
-General Surgery consulted for cholecystectomy. Plan for OR later today. Postop orders per surgery.
-GI following
#DVT prophylaxis
-scd
#CODE status
-full code
Discussed with discussed with spouse and daughter at bedside
Anticipated Discharge: Within 24 hours
Subjective/Interval History
-
Date of Service: November 05, 2023
Improvement in abd pain
Objective Data
-
Labs:
Laboratory Results
11/05/23
05:40
WBC 6.1
Hgb 12.4
Hct 34.6 L
Plt Count 160
Sodium 140
Potassium 4.0
Chloride 108 H
Carbon Dioxide 24
BUN 9
Creatinine 0.6
Glucose 96
Calcium 8.8
Total Bilirubin 1.0
AST 92 H
ALT 412 H
Alkaline Phosphatase 138 H
Vital Signs:
Vital Signs
Temp Pulse Resp BP Pulse Ox
98.9 F 80 16 109/68 100
11/05/23 07:20 11/05/23 07:20 11/05/23 07:20 11/05/23 07:20 11/05/23 07:20
I&O
11/04/23 11/05/23 11/06/23
06:59 06:59 06:59
Intake Total 1060 / 1060 3460 / 3460
Balance 1060 / 1060 3460 / 3460
--- NOTE | 2023-11-05 17:31 | OR.RPT ---
Operative Report
Operative Report
Primary Surgeon: Tatiana
Assisting: Kurt ABDULLAHI
Pre-op Diagnosis: Choledocholithiasis
Post-op Diagnosis: Same
Procedure Performed: Robot assisted laparoscopic cholecystectomy
Anesthesia Type: GETA
Specimen / Cultures: Gallbladder
Estimated Blood Loss: 10cc
Complications: None immediate
Operative Findings: Floppy gallbladder without adhesions
Date of Surgery:� 11/05/23
Indications: This 58F developed right upper quadrant pain. Work-up showed choledocholithiasis. She underwent successful ERCP. Laparoscopic cholecystectomy with robotic assist was elected.
Description of procedure: The patient was placed on the operating table in the supine position. General anesthesia was induced. A time-out was completed verifying correct patient, procedure, site, positioning, and special equipment prior to
beginning this procedure. An orogastric tube was placed. The abdomen was prepped and draped in the usual sterile fashion. A stab incision was made in left upper quadrant and the Veress needle was inserted. Proper position was confirmed by aspiration
and saline meniscus test. The abdomen was insufflated with carbon dioxide to a pressure of 12mmHg. The patient tolerated insufflation well.
A 8mm trocar was then inserted above the umbilicus. The laparoscope was inserted and the abdomen inspected. No injuries from initial trocar placement or Veress needle insertion were noted. Additional 8mm trocars were then inserted in the following
locations: two in the right lower quadrant and to the left of the umbilicus and just above. The abdomen was inspected and no abnormalities were found. The table was placed in the reverse Trendelenburg position with the right side up. The dome of the
gallbladder was grasped with an atraumatic grasper and retracted over the dome of the liver. The infundibulum was then grasped with an atraumatic grasper and retracted toward the right lower quadrant. This maneuver exposed Calot�s triangle. The
peritoneum overlying the gallbladder infundibulum was then incised and the cystic duct and cystic artery identified and circumferentially dissected so that a clear view of the liver was achieved through a window between the cystic duct an cystic
artery. At this time, the only two structures going into the gallbladder were the cystic artery and cystic duct.
The cystic duct was then doubly clipped and divided. The cystic artery was controlled with bipolar and divided. The gallbladder was then dissected from its peritoneal attachments by electrocautery. The gallbladder was removed using an endoscopic
retrieval bag placed through the umbilical port. The gallbladder was passed off the table as a specimen. The gallbladder fossa was thoroughly irrigated. There was no evidence of bleeding from the gallbladder fossa or cystic artery or leakage of the
bile from the cystic duct stump. The umbilical trocar site was closed at the fascial level with 2-0 PDS. Secondary trocars were removed under direct vision and noted to be hemostatic. The abdomen was allowed to collapse. The skin was closed with
subcuticular sutures of 4-0 monocryl and topical skin adhesive. The orogastric tube was removed.
The patient tolerated the procedure well and was taken to the postanesthesia care unit in stable condition.
The assistance of Kurt ABDULLAHI was required due to the complexity of the procedure. During the procedure he assisted with retraction, resection, and closure of the wound.
[2023-11-05] MEDS: TORADOL 15 MG IV (20:18)
[2023-11-05] MEDS: FLUSH (NSS) 2 FLUSH IV (20:19)
--- NOTE | 2023-11-06 01:39 | PTCARENOTE ---
Patient received from PACU via bed. Family at bedside. lap site with surgical glue in place. Patient tolerated a small amount of dinner. IVF as ordered. Ax1 to bathroom. See MAR for pain management.
[2023-11-06 03:00] VITALS: BP 117/66
[2023-11-06 05:47] LABS: Hematocrit 34.6 % (37.0-47.0); Hemoglobin 12.2 g/dL (12.0-16.0); Mean Corp Hgb Conc. 35.3 g/dL (33.0-37.0); Mean Corpuscular Hgb 33.9 pg (27.0-31.0); Mean Corpuscular Volume 96.1 fL (81.0-99.0); Mean Platelet Volume 11.4 fL (7.4-10.4); Platelet Count 166 10^3/uL (130-400); Red Cell Dist. Width 11.9 % (11.5-14.5); White Blood Cell Count 8.9 10^3/uL (4.8-10.8)
[2023-11-06] MEDS: TORADOL 15 MG IV (05:51)
[2023-11-06 06:18] LABS: ALT (SGPT) 354 U/L (0-35); AST (SGOT) 73 U/L (14-36); Albumin 3.7 g/dl (3.5-5.0); Alkaline Phosphatase 129 U/L (38-126); Blood Urea Nitrogen 7 mg/dl (7-17); Calcium 8.6 mg/dl (8.4-10.2); Carbon Dioxide 24 mmol/L (22-30); Chloride 109 mmol/L (98-107); Estimated Creatinine Clearance 87 ml/min; Glucose 95 mg/dl (70-99); Potassium 3.8 mmol/L (3.5-5.1); Sodium 144 mmol/L (135-145); Total Bilirubin 0.6 mg/dl (0.2-1.3); eGFR > 60.00
[2023-11-06 07:25] VITALS: BP 133/78
[2023-11-06] MEDS: NSS (PRESERVATIVE FREE) IV (08:00)
[2023-11-06] MEDS: PROTONIX IV IV (08:00)
--- NOTE | 2023-11-06 08:04 | W.PN.GS2 ---
Addendum entered and electronically signed by Rodri Wilks MD 11/06/23 08:21:
Patient seen and examined with compliance vice president. Agree with documented progress note.
Patient reports good pain control postoperatively. No nausea. Tolerating low-fat/regular diet.
AFVSS
NAD AAOx3
ABD: Soft, slightly distended, minimal tenderness at incision sites. Incisions with glue dressing and minimal localized ecchymosis
A/P: POD #1 s/p RAL cholecystectomy
Stable for discharge home
Follow-up with Dr. Simpson 2 to 3 weeks for postop
Surgical discharge instructions reviewed
Original Note:
Today's Communication / Plan
-
Patient cleared for discharge from surgery's end
Assessment / Plan
-
Assessment:
Patient is a 58 yo woman POD#1 following robot assisted laparoscopic cholecystectomy for choledocholithiasis. Patient underwent procedure well and had no complications during the procedure.
Plan:
AFVSS
Labs Stable
Choledocholithiasis
-Underwent successful laparoscopic cholecystectomy
-No antibiotics required post procedure
-Pain/anti-emetics PRN
-Able to tolerate regular diet
-Cleared for discharge as per surgery team
-No heavy lifting for 2-3 weeks
DVT prophylaxis: SCD
Subjective Data
-
Date of Service: November 06, 2023
Patient has been feeling well after surgery. She reports no nausea, vomiting, fevers or chills since the procedure. Patient was able to eat some food last night and has been tolerating food this morning as well.
Objective Data
-
Intake and Output
11/05/23 11/06/23 11/07/23
06:59 06:59 06:59
Intake Total 3460 / 3460 1320 / 1320
Output Total 1600 / 1600
Balance 3460 / 3460 -280 / -280
Intake:
Oral fluids 1440 / 1440 480 / 480
IV fluids (Total) 2019 840 / 840
LR 100 / 100
Output:
Urine, Voided 1600 / 1600
Other:
Number of approximated MODERATE 3
amounts of urine
How many times incontinent 3
MODERATE amount urine
Vital Signs
Temp Pulse Resp BP Pulse Ox
98.0 F 72 16 133/78 99
11/06/23 07:25 11/06/23 07:25 11/06/23 07:25 11/06/23 07:25 11/06/23 07:25
Lab Results
11/06/23 05:11
11/06/23 05:11
Calcium 8.6 mg/dl (8.4-10.2) 11/06/23 05:11
Total Bilirubin 0.6 mg/dl (0.2-1.3) 11/06/23 05:11
Direct Bilirubin 1.0 mg/dl (0.0-0.4) H 11/03/23 15:23
AST 73 U/L (14-36) H 11/06/23 05:11
ALT 354 U/L (0-35) H 11/06/23 05:11
Alkaline Phosphatase 129 U/L (38-126) H 11/06/23 05:11
Total Protein 6.0 g/dl (6.3-8.2) L 11/06/23 05:11
Albumin 3.7 g/dl (3.5-5.0) 11/06/23 05:11
Physical Exam
-
Gen: NAD
GI: Soft, ND, Non-tender, incision sites non-erythematous and non-draining
--- NOTE | 2023-11-06 10:18 | W.PN.HOSP.TC ---
Today's Communication/Plan
-
DC HOME
Assessment / Plan
Assessment / Plan
General: Well Developed, Well Nourished and No Apparent Distress
HEENT: NormoCephalic, Moist mucous membranes and Atraumatic
Respiratory: Clear
Cardiac: S1/S2 and Regular Rhythm; No Murmur or Rub
GI: Soft, Non Distended and Normal Bowel Sounds; No Organomegaly
Rectal: Deferred by Provider
Musculoskeletal: No Clubbing, No Cyanosis and No Edema
Skin: No Rash
Neuro: AO x 3 and Nonfocal/grossly intact
Psych: Calm
#Epigastric pain associated with N/V/D likely from Choledocholithiasis
-Mild improvement in transaminitis.
-abdomen US with choledocholithiasis with a 3 mm calculus in the distal common bile duct.There is, however, no associated biliary dilatation and there is no thickening of the gallbladder wall or pericholecystic edema.
-Discussed with GI. DC antibiotics. Not concern for cholangitis
-s/p ERCP biliary sphincterotomy and balloon extraction status post pancreatic stent durotomy with placement of plastic stent.
-Serologies pending.
-Status post laparoscopic cholecystectomy.
-GI following
#DVT prophylaxis
-scd
#CODE status
-full code
Discussed with discussed with spouse
More than 30 minutes spent in discharge including
Final examination of the patient
Summarizing hospital stay
Instructions for continuing care to all relevant caregivers
Preparation of discharge records, prescriptions, and referral forms
Total time spent (in minutes): 55
Anticipated Discharge: Today
Subjective/Interval History
-
Date of Service: November 06, 2023
Seen in the hallway
Some abdominal bloating but no significant pain
Tolerating diet.
Objective Data
-
Labs:
Laboratory Results
11/06/23
05:11
WBC 8.9
Hgb 12.2
Hct 34.6 L
Plt Count 166
Sodium 144
Potassium 3.8
Chloride 109 H
Carbon Dioxide 24
BUN 7
Creatinine 0.6
Glucose 95
Calcium 8.6
Total Bilirubin 0.6
AST 73 H
ALT 354 H
Alkaline Phosphatase 129 H
Vital Signs:
Vital Signs
Temp Pulse Resp BP Pulse Ox
98.0 F 72 16 133/78 99
11/06/23 07:25 11/06/23 07:25 11/06/23 07:25 11/06/23 07:25 11/06/23 07:25
I&O
11/05/23 11/06/23 11/07/23
06:59 06:59 06:59
Intake Total 3460 / 3460 1320 / 1320
Output Total 1600 / 1600
Balance 3460 / 3460 -280 / -280
--- NOTE | 2023-11-06 10:20 | W.DCSUMMARY ---
Discharge Summary
Discharge Data
Date of Admission: 11/03/23
Date of Discharge: 11/06/23
-
Pending Results: No
Hospital Course
58-year-old female who is presenting from home with complaints of abdominal pain. Patient was found to have severe transaminitis. Patient underwent abdominal ultrasound with concern for choledocholithiasis. Patient was eval by c application developer.
Patient underwent ERCP with biliary sphincterotomy and balloon extraction status post pancreatic stent durotomy with placement of plastic stent. Patient was evaluated by general surgery and underwent laparoscopic cholecystectomy. Patient with
significant improvement in transaminitis. Post procedures patient was started on diet. Patient was tolerating diet without any nausea or vomiting. Patient be discharged home with recommendation to follow-up outpatient with gastroenterology with
repeat x-ray for which lab slip was provided by Dr. Skinner and general surgery for postop surgical management. Patient's hepatitis was ordered by gastroenterology and was found to be nonreactive. Significant improvement in liver function was noted
and recommended outpatient repeat blood work with primary care doctor.
Discharge Plan
-
Patient Disposition: Home (Routine Discharge)
Discharge Diagnosis/Procedures: Choledocholithiasis
Status post laparoscopic cholecystectomy
Transaminitis
Condition: Fair
Diet: No restrictions
Activity: No strenuous activity
Bathing Restrictions: OK to Shower
Blood Work: CMP in 1-2 weeks via primary doctor.
Others Tests: obtain follow up x ray in 2 weeks to confirm passage of stent
Wound Care: Allow skin glue to flake off on its own.
Instructions: Cholecystectomy (DC)
Referrals:
Fidel Ruiz MD [Active] - (check X ray in 2 weeks and call to review result after completed with Dr. Ruiz)
Felix Simpson MD [Active] - in two to four weeks
Santos Hathaway MD [Family Provider] - in less than 1 week
Additional Discharge Medication Instructions: For pain take ibuprofen 600-800mg 4x daily with food for the next few days up to 1 week. In between doses if you get pain take 1000mg tylenol (max 4x daily). Use ice packs and/or heating pads.
Prescriptions:
Continued
therapeutic multivitamin Tablet
1 tab PO HS
estradiol-norethindrone acet 1-0.5 mg Tablet
1 tab PO HS
omeprazole magnesium [Prilosec OTC] 20 mg Tablet,Delayed Release (Dr/Ec)
20 mg PO DAILYPRN PRN (Reason: stomach issues)
cholecalciferol (vitamin D3) [Vitamin D3] 50 mcg (2,000 unit) Tablet
50 mcg PO HS
Discharge Orders:
Discharge Patient (As Directed); Ordered 11/06/23
Ordered By: Adolph Garcia
Discharge Date and Time
Discharge Date/Time: 11/06/23 11:00
Print Language: PALAUAN
--- NOTE | 2023-11-06 10:52 | CM ---
Reviewed the chart notes. Patient for discharge to home today. CM continues to be available to patient/family and is monitoring medical plan for needs at discharge.
Plan: Discharge to home today. No needs identified.
== END 2023-11-06 11:00 | disposition home or self-care (01) | DRG 419 ==
LOC: 2 SOUTH 18:40
PROVIDERS: Internal Medicine Gastroenterology; Physician Assistant; Registered Nurse; ADMITTING PHYSICIAN Hospitalist; ATTENDING PHYSICIAN Hospitalist; CONSULT PHYSICIAN Surgery; EMERGENCY PHYSICIAN Student in an Organized Health Care Education/Training Program; FAMILY PHYSICIAN Internal Medicine Geriatric Medicine; OTHER PHYSICIAN Student in an Organized Health Care Education/Training Program
PROC: 0FC98ZZ Extirpation of Matter from Common Bile Duct, Via Natural or Artificial Opening Endoscopic (ICD-10-PCS; 2023-11-04)
PROC: 0F7D8DZ Dilation of Pancreatic Duct with Intraluminal Device, Via Natural or Artificial Opening Endoscopic (ICD-10-PCS; 2023-11-04)
PROC: 0FT44ZZ Resection of Gallbladder, Percutaneous Endoscopic Approach (ICD-10-PCS; 2023-11-05)
DX: K80.70 Calculus of gallbladder and bile duct without cholecystitis without obstruction (principal); K21.9 Gastro-esophageal reflux disease without esophagitis; I16.0 Hypertensive urgency; Z88.5 Allergy status to narcotic agent
CPT/HCPCS: 88304; 74330; 76000; 76700; 80048; 80053; 80076; 81003; 81015; 83690; 84132; 85025; 85027; 86704; 86705; 86706; 86708; 86709; 86803; 87340; 93005; 96361; 96374; 96375; 99285; C1769; C2617

== ENCOUNTER → 2023-11-19 11:11 | Outpatient (REF) | payer OTHER, SELFPAY | LOC: REG 11:11 | PROVIDERS: ATTENDING PHYSICIAN Podiatrist Foot & Ankle Surgery; FAMILY PHYSICIAN Internal Medicine Geriatric Medicine | DX: K80.50 Calculus of bile duct without cholangitis or cholecystitis without obstruction (principal) | CPT/HCPCS: 74018 ==

== ENCOUNTER → 2024-04-12 13:11 | Outpatient (REF) | payer OTHER, SELFPAY | LOC: WDC 13:11 | PROVIDERS: ATTENDING PHYSICIAN Obstetrics & Gynecology Gynecology; FAMILY PHYSICIAN Internal Medicine Geriatric Medicine | DX: Z12.31 Encounter for screening mammogram for malignant neoplasm of breast (principal); Z80.3 Family history of malignant neoplasm of breast | CPT/HCPCS: 77063; 77067 ==

== ENCOUNTER → 2024-04-26 12:50 | Outpatient (REF) | payer OTHER, SELFPAY | LOC: WDC 12:50 | PROVIDERS: ATTENDING PHYSICIAN Obstetrics & Gynecology Gynecology; FAMILY PHYSICIAN Internal Medicine Geriatric Medicine | DX: R92.2 Inconclusive mammogram (principal); Z80.3 Family history of malignant neoplasm of breast | CPT/HCPCS: 76641 ==

== ENCOUNTER → 2024-06-30 12:45 | Outpatient (REF) | payer OTHER, SELFPAY | LOC: MRI 3T 12:45 | PROVIDERS: ATTENDING PHYSICIAN Surgery; FAMILY PHYSICIAN Internal Medicine Geriatric Medicine | DX: R92.30 Dense breasts, unspecified (principal); N63.0 Unspecified lump in unspecified breast; Z91.89 Other specified personal risk factors, not elsewhere classified | CPT/HCPCS: 77049; A9585 ==